=== PATIENT | female | born 1960 | race Caucasian/White ===

== ENCOUNTER 2016-11-17 18:25 | Emergency (ER) | payer OTHER ==
[2016-11-17] MEDS ORDERED: SODIUM CHLORIDE 0.9% 1,000 ML IV STA (19:39)
[2016-11-17] MEDS ORDERED: FAMOTIDINE 20 MG/2 ML VIAL IV STA (19:39)
--- NOTE | 2016-11-17 19:43 | ED ---
General Adult HPI - General Source: patient, RN notes reviewed Mode of arrival: wheelchair Limitations: no limitations <Dyllan Chung - Last Filed: 11/17/16 19:40> <Maverick Zarate - Last Filed: 11/17/16 22:48> - General Chief complaint: Abdominal Pain Stated complaint: Abdominal pain Time Seen by Provider: 11/17/16 19:32 - History of Present Illness Initial comments: Patient is a pleasant 56-year-old female presenting to the emergency department complaining of abdominal discomfort. Onset was around 2:00. Symptoms have improved and are now mild. Patient does have discomfort right side of the abdomen with radiation towards the back. Patient has had similar back pain multiple times in the past. Patient also at times feels like her food is not being swallowed appropriately and vomits it up. Patient having problems with swallowing feels discomfort more in the mid to lower abdomen. No fevers. No food prior to onset of symptoms today. (Dyllan Chung) - Related Data Previous Rx's Medication Instructions Recorded Dicyclomine [Bentyl] 20 mg PO QID #15 tablet 11/17/16 Famotidine [Pepcid] 20 mg PO DAILY #14 tablet 11/17/16 Allergies Allergy/AdvReac Type Severity Reaction Status Date / Time erythromycin base Allergy Nausea & Verified 11/17/16 19:43 [Erythromycin Base] Vomiting & Diarrhea Penicillins Allergy Rash/Hives Verified 11/17/16 19:43 Review of Systems ROS Other: All systems not noted in ROS Statement are negative. Constitutional: Denies: fever Eyes: Denies: eye pain ENT: Denies: ear pain Respiratory: Denies: cough Cardiovascular: Denies: chest pain Endocrine: Denies: fatigue Gastrointestinal: Reports: abdominal pain. Denies: vomiting Genitourinary: Denies: dysuria Musculoskeletal: Denies: arthralgia Skin: Denies: rash Neurological: Denies: weakness <Dyllan Chung - Last Filed: 11/17/16 19:40> ROS Other: All systems not noted in ROS Statement are negative. <Maverick Zarate - Last Filed: 11/17/16 22:48> ROS Statement: Those systems with pertinent positive or pertinent negative responses have been documented in the HPI. Past Medical History Past Medical History: No Reported History History of Any Multi-Drug Resistant Organisms: None Reported Past Surgical History: Hernia Repair, Tubal Ligation Past Psychological History: No Psychological Hx Reported Smoking Status: Never smoker Past Alcohol Use History: None Reported Past Drug Use History: None Reported <Dyllan Chung - Last Filed: 11/17/16 19:40> General Exam Limitations: no limitations General appearance: alert, in no apparent distress Head exam: Present: atraumatic Eye exam: Present: normal appearance, PERRL ENT exam: Present: normal oropharynx Neck exam: Present: normal inspection Respiratory exam: Present: normal lung sounds bilaterally Cardiovascular Exam: Present: regular rate, normal rhythm GI/Abdominal exam: Present: soft, tenderness (Mild tenderness in the epigastric and upper quadrant. Moderate tenderness in the mid and right lower quadrant.), normal bowel sounds. Absent: distended, guarding, rebound, rigid, pulsatile mass Extremities exam: Present: normal inspection. Absent: pedal edema, calf tenderness Back exam: Present: normal inspection. Absent: tenderness Neurological exam: Present: alert Psychiatric exam: Present: normal affect, normal mood Skin exam: Absent: rash <Dyllan Chung - Last Filed: 11/17/16 19:40> Medical Decision Making - Lab Data Result diagrams: 11/17/16 20:05 11/17/16 20:05 <Maverick Zarate - Last Filed: 11/17/16 22:48> - Lab Data Lab Results 11/17/16 11/17/16 11/17/16 Range/Units 20:05 20:05 20:05 WBC 11.0 H (3.8-10.6) k/uL RBC 4.46 (3.80-5.40) m/uL Hgb 14.3 (11.4-16.0) gm/dL Hct 40.5 (34.0-46.0) % MCV 90.8 (80.0-100.0) fL MCH 32.1 (25.0-35.0) pg MCHC 35.3 (31.0-37.0) g/dL RDW 12.2 (11.5-15.5) % Plt Count 349 (150-450) k/uL Neutrophils % 76 % Lymphocytes % 15 % Monocytes % 5 % Eosinophils % 2 % Basophils % 0 % Neutrophils # 8.4 H (1.3-7.7) k/uL Lymphocytes # 1.7 (1.0-4.8) k/uL Monocytes # 0.5 (0-1.0) k/uL Eosinophils # 0.2 (0-0.7) k/uL Basophils # 0.0 (0-0.2) k/uL PT 10.7 (9.0-12.0) sec INR 1.1 (<1.1) APTT 23.9 (22.0-30.0) sec Sodium 139 (137-145) mmol/L Potassium 4.1 (3.5-5.1) mmol/L Chloride 102 (98-107) mmol/L Carbon Dioxide 27 (22-30) mmol/L Anion Gap 10 mmol/L BUN 15 (7-17) mg/dL Creatinine 0.72 (0.52-1.04) mg/dL Est GFR (MDRD) Af Amer >60 (>60 ml/min/1.73 sqM) Est GFR (MDRD) Non-Af >60 (>60 ml/min/1.73 sqM) Glucose 103 H (74-99) mg/dL Calcium 9.5 (8.4-10.2) mg/dL Total Bilirubin 0.8 (0.2-1.3) mg/dL AST 20 (14-36) U/L ALT 22 (9-52) U/L Alkaline Phosphatase 58 (38-126) U/L Total Protein 7.8 (6.3-8.2) g/dL Albumin 4.3 (3.5-5.0) g/dL Amylase 62 (30-110) U/L Lipase 160 (23-300) U/L Urine Color Urine Appearance (Clear) Urine pH (5.0-8.0) Ur Specific [place] (1.001-1.035) Urine Protein (Negative) Urine Glucose (UA) (Negative) Urine Ketones (Negative) Urine Blood (Negative) Urine Nitrite (Negative) Urine Bilirubin (Negative) Urine Urobilinogen (<2.0) mg/dL Ur Leukocyte Esterase (Negative) Urine WBC (0-5) /hpf Ur Squamous Epith Cells (0-4) /hpf Amorphous Sediment (None) /hpf Urine Mucus (None) /hpf 11/17/16 Range/Units 20:05 WBC (3.8-10.6) k/uL RBC (3.80-5.40) m/uL Hgb (11.4-16.0) gm/dL Hct (34.0-46.0) % MCV (80.0-100.0) fL MCH (25.0-35.0) pg MCHC (31.0-37.0) g/dL RDW (11.5-15.5) % Plt Count (150-450) k/uL Neutrophils % % Lymphocytes % % Monocytes % % Eosinophils % % Basophils % % Neutrophils # (1.3-7.7) k/uL Lymphocytes # (1.0-4.8) k/uL Monocytes # (0-1.0) k/uL Eosinophils # (0-0.7) k/uL Basophils # (0-0.2) k/uL PT (9.0-12.0) sec INR (<1.1) APTT (22.0-30.0) sec Sodium (137-145) mmol/L Potassium (3.5-5.1) mmol/L Chloride (98-107) mmol/L Carbon Dioxide (22-30) mmol/L Anion Gap mmol/L BUN (7-17) mg/dL Creatinine (0.52-1.04) mg/dL Est GFR (MDRD) Af Amer (>60 ml/min/1.73 sqM) Est GFR (MDRD) Non-Af (>60 ml/min/1.73 sqM) Glucose (74-99) mg/dL Calcium (8.4-10.2) mg/dL Total Bilirubin (0.2-1.3) mg/dL AST (14-36) U/L ALT (9-52) U/L Alkaline Phosphatase (38-126) U/L Total Protein (6.3-8.2) g/dL Albumin (3.5-5.0) g/dL Amylase (30-110) U/L Lipase (23-300) U/L Urine Color Yellow Urine Appearance Cloudy H (Clear) Urine pH 7.5 (5.0-8.0) Ur Specific [place] 1.020 (1.001-1.035) Urine Protein Trace H (Negative) Urine Glucose (UA) Negative (Negative) Urine Ketones Negative (Negative) Urine Blood Negative (Negative) Urine Nitrite Negative (Negative) Urine Bilirubin Negative (Negative) Urine Urobilinogen <2.0 (<2.0) mg/dL Ur Leukocyte Esterase Negative (Negative) Urine WBC 1 (0-5) /hpf Ur Squamous Epith Cells 3 (0-4) /hpf Amorphous Sediment Few H (None) /hpf Urine Mucus Occasional H (None) /hpf Disposition <Dyllan Chnug - Last Filed: 11/17/16 19:40> <Maverick Zarate - Last Filed: 11/17/16 22:48> Clinical Impression: Abdominal pain Disposition: HOME SELF-CARE Condition: Good Instructions: Abdominal Pain (ED) Prescriptions: Dicyclomine [Bentyl] 20 mg PO QID #15 tablet Famotidine [Pepcid] 20 mg PO DAILY #14 tablet Referrals: John Bales MD [Primary Care Provider] - 1-2 days
[2016-11-17 20:17] LABS: Basophils % (A) 0 %; CH 31.7; Eosinophils # (A) 0.2 k/uL (0-0.7); Eosinophils % (A) 2 %; HCT 40.5 % (34.0-46.0); HDW 2.79; HGB 14.3 gm/dL (11.4-16.0); Luc # (Auto) 0.17; Luc % (Auto) 2; Lymphocytes # (A) 1.7 k/uL (1.0-4.8); Lymphocytes % (A) 15 %; MCH 32.1 pg (25.0-35.0); MCHC 35.3 g/dL (31.0-37.0); MCV 90.8 fL (80.0-100.0); Mean Platelet Volume 6.3; Monocytes # (A) 0.5 k/uL (0-1.0); Monocytes % (A) 5 %; Neutrophils # (A) 8.4 k/uL (1.3-7.7); Neutrophils % (A) 76 %; RBC 4.46 m/uL (3.80-5.40); RDW 12.2 % (11.5-15.5); WBC (Perox) 10.69
[2016-11-17 20:29] LABS: ALT 22 U/L (9-52); AST 20 U/L (14-36); Alkaline Phosphatase 58 U/L (38-126); Amylase 62 U/L (30-110); Anion Gap 10 mmol/L; Blood Urea Nitrogen 15 mg/dL (7-17); Calcium 9.5 mg/dL (8.4-10.2); Carbon Dioxide 27 mmol/L (22-30); Chloride 102 mmol/L (98-107); Glucose 103 mg/dL (74-99); Non-African American GFR(MDRD) >60 (>60 ml/min/1.73 sqM); Potassium 4.1 mmol/L (3.5-5.1); Sodium 139 mmol/L (137-145); Total Bilirubin 0.8 mg/dL (0.2-1.3); Total Protein 7.8 g/dL (6.3-8.2)
[2016-11-17 20:41] LABS: INR 1.1 (<1.1); Partial Thromboplastin Time 23.9 sec (22.0-30.0); Prothrombin Time 10.7 sec (9.0-12.0)
[2016-11-17 20:44] LABS: Amorphous Sediment,Urine Few /hpf; Appearance,Urine Cloudy (Clear); Bilirubin,Urine Negative (Negative); Glucose,Urine (UA) Negative (Negative); Ketones,Urine Negative (Negative); Leukocyte Esterase,Urine Negative (Negative); Mucus,Urine Occasional /hpf; Nitrite,Urine Negative (Negative); PH, Urine 7.5 (5.0-8.0); Particle Count 5977; Protein,Urine Trace (Negative); Squamous Epithelial Cell,Urine 3 /hpf (0-4); UA Billing (MACRO vs. MICRO) MICRO; Urobilinogen,Urine <2.0 mg/dL (<2.0); WBC,Urine 1 /hpf (0-5)
[2016-11-17 21:29] VITALS: TEMP 97.6
--- NOTE | 2016-11-17 21:36 | CT ---
EXAMINATION TYPE: CT ABDOMEN PELVIS WO CON DATE OF EXAM: 11/17/2016 8:22 PM COMPARISON: NONE HISTORY: abdominal pain CT DLP: 570.7 mGycm. Automated exposure control for dose reduction was used. TECHNIQUE: Helical acquisition of images was performed from the lung bases through the pelvis. FINDINGS: LUNG BASES: No significant abnormality is appreciated. LIVER/GB: No significant abnormality is appreciated. PANCREAS: No significant abnormality is seen. SPLEEN: No significant abnormality is seen. ADRENALS: No significant abnormality is seen. KIDNEYS: No significant abnormality is seen. RETROPERITONEAL ADENOPATHY: None visualized REPRODUCTIVE ORGANS: No significant abnormality is seen, URINARY BLADDER: No significant abnormality is seen. PELVIC ADENOPATHY: None visualized. OSSEOUS STRUCTURES: No significant abnormality is seen. BOWEL: No significant abnormality is seen. Limitation: Without intravenous contrast there is limited sensitivity for focal visceral lesions and for intravascular pathology. IMPRESSION: NO ACUTE PROCESS.
[2016-11-17 23:08] VITALS: BP 146/74; PULSE 75; RESP 16
== END 2016-11-17 23:08 | disposition home or self-care (01) ==
LOC: EC 18:25
DX: R10.13 Epigastric pain (principal); R10.10 Upper abdominal pain, unspecified; R10.31 Right lower quadrant pain; Z88.0 Allergy status to penicillin; Z88.1 Allergy status to other antibiotic agents
CPT/HCPCS: 36415; 74176; 80053; 81001; 82150; 83690; 85025; 85610; 85730; 86677; 96361; 96374; 99284

== ENCOUNTER 2019-03-08 10:52 | Emergency (ER) | payer OTHER ==
[2019-03-08 10:57] VITALS: RESP 16; TEMP 98.1
[2019-03-08] MEDS ORDERED: SODIUM CHLORIDE 0.9% 500 ML 500 ML IV STA (11:38)
[2019-03-08] MEDS ORDERED: KETOROLAC 30 MG/ML 1 ML VIAL IVP STA (11:38)
--- NOTE | 2019-03-08 12:07 | ED ---
Headache HPI - General Chief Complaint: Headache Stated Complaint: Back and neck pain Time Seen by Provider: 03/08/19 11:02 Mode of arrival: ambulatory Limitations: no limitations - History of Present Illness Initial Comments: Patient is a 58-year-old female presenting to the emergency Department with complaints of a headache at times one day. Patient states yesterday she was watching TV and started having "zigzag patterns in her vision" that lasted for about 10 minutes and then went away. Patient states she then went to bed and woke up with a headache and a sore neck. Patient describes her headache as in the posterior aspect, 4/10, and describes it as pressure feeling. Patient states she has no increase or decrease in pain with neck movement. Patient denies any recent fever, chills or other recent illnesses. Patient states she has no changes in her vision today. Patient was diagnosed with fibromyalgia a few years ago but does not take any medications. Patient denies nausea, vomiting, abdominal pain. No other complaints at this time. Of note, patient does admit to being on a bus last week that could be contributing to her sore neck. - Related Data Home Medications Medication Instructions Recorded Confirmed Aspirin EC [Ecotrin Low Dose] 324 mg PO DAILY PRN 03/08/19 03/08/19 Lysine 500 mg PO DAILY 03/08/19 03/08/19 Multivitamins, Thera [Multivitamin 1 tab PO DAILY 03/08/19 03/08/19 (formulary)] Turmeric Root Extract [Turmeric] 500 mg PO DAILY 03/08/19 03/08/19 Allergies Allergy/AdvReac Type Severity Reaction Status Date / Time erythromycin base Allergy Nausea & Verified 03/08/19 11:15 [Erythromycin Base] Vomiting & Diarrhea Penicillins Allergy Rash/Hives Verified 03/08/19 11:15 Review of Systems ROS Statement: Those systems with pertinent positive or pertinent negative responses have been documented in the HPI. ROS Other: All systems not noted in ROS Statement are negative. Past Medical History Past Medical History: No Reported History History of Any Multi-Drug Resistant Organisms: None Reported Past Surgical History: Hernia Repair, Tubal Ligation Past Psychological History: No Psychological Hx Reported Smoking Status: Never smoker Past Alcohol Use History: None Reported Past Drug Use History: None Reported General Exam - General Exam Comments Initial Comments: GENERAL: Well-appearing, well-nourished and in no acute distress. HEAD: Atraumatic, normocephalic. EYES: Pupils equal round and reactive to light, extraocular movements intact, sclera anicteric, conjunctiva are normal. ENT: TMs normal, nares patent, oropharynx clear without exudates. Moist mucous membranes. NECK: Normal range of motion with soreness at the end range, supple without lymphadenopathy or JVD. No pain with palpation of the posterior paraspinals. LUNGS: Breath sounds clear to auscultation bilaterally and equal. No wheezes rales or rhonchi. HEART: Regular rate and rhythm without murmurs, rubs or gallops. ABDOMEN: Soft, nontender, normoactive bowel sounds. No guarding, no rebound. No masses appreciated. : Deferred EXTREMITIES: Normal range of motion, no pitting or edema. No clubbing or cyanosis. NEUROLOGICAL: Cranial nerves II through XII grossly intact. Normal speech, normal gait. sensation equal in bilateral upper and lower extremities. Strength 5 out of 5 upper and lower extremities. PSYCH: Normal mood, normal affect. SKIN: Warm, Dry, normal turgor, no rashes or lesions noted. Limitations: no limitations Course Vital Signs 03/08/19 03/08/19 10:55 13:24 Temperature 98.1 F 98.1 F Pulse Rate 76 70 Respiratory 16 16 Rate Blood Pressure 167/68 145/61 O2 Sat by Pulse 97 98 Oximetry Medical Decision Making - Medical Decision Making Patient is a 58-year-old female presenting with a headache 1 day. Patient has history of fibromyalgia but does not take any medication for this. Patient's exam is unremarkable including neuro exam. Patient has no meningeal signs. Patient states she was on a bus last week that could be contributing to her sore neck. Patient was given fluids and Toradol which did relieve her headache. Patient's vital signs remained stable during stay, afebrile. Patient's CBC CMP and UA are all within normal limits. Patient be discharged home and will follow up with PCP and/or neurologist if symptoms continue and patient was in agreement with this plan. Return parameters were discussed with the patient she nigel balized understanding such as fever, chills, increased pain in the neck or head. Case discussed with Dr. Waite. - Lab Data Result diagrams: 03/08/19 11:45 03/08/19 11:45 Lab Results 03/08/19 03/08/19 03/08/19 Range/Units 11:45 11:45 11:45 WBC 7.6 (3.8-10.6) k/uL RBC 4.83 (3.80-5.40) m/uL Hgb 14.9 (11.4-16.0) gm/dL Hct 44.4 (34.0-46.0) % MCV 92.0 (80.0-100.0) fL MCH 30.9 (25.0-35.0) pg MCHC 33.6 (31.0-37.0) g/dL RDW 13.1 (11.5-15.5) % Plt Count 318 (150-450) k/uL Neutrophils % 58 % Lymphocytes % 28 % Monocytes % 6 % Eosinophils % 6 % Basophils % 1 % Neutrophils # 4.4 (1.3-7.7) k/uL Lymphocytes # 2.1 (1.0-4.8) k/uL Monocytes # 0.4 (0-1.0) k/uL Eosinophils # 0.5 (0-0.7) k/uL Basophils # 0.1 (0-0.2) k/uL Sodium 138 (137-145) mmol/L Potassium 4.7 (3.5-5.1) mmol/L Chloride 104 (98-107) mmol/L Carbon Dioxide 28 (22-30) mmol/L Anion Gap 6 mmol/L BUN 15 (7-17) mg/dL Creatinine 0.73 (0.52-1.04) mg/dL Est GFR (CKD-EPI)AfAm >90 (>60 ml/min/1.73 sqM) Est GFR (CKD-EPI)NonAf >90 (>60 ml/min/1.73 sqM) Glucose 100 H (74-99) mg/dL Calcium 9.7 (8.4-10.2) mg/dL Total Bilirubin 1.3 (0.2-1.3) mg/dL AST 25 (14-36) U/L ALT 17 (9-52) U/L Alkaline Phosphatase 62 (38-126) U/L Total Protein 8.1 (6.3-8.2) g/dL Albumin 4.5 (3.5-5.0) g/dL Urine Color Yellow Urine Appearance Clear (Clear) Urine pH 6.0 (5.0-8.0) Ur Specific [place] 1.020 (1.001-1.035) Urine Protein Trace H (Negative) Urine Glucose (UA) Negative (Negative) Urine Ketones Negative (Negative) Urine Blood Trace H (Negative) Urine Nitrite Negative (Negative) Urine Bilirubin Negative (Negative) Urine Urobilinogen <2.0 (<2.0) mg/dL Ur Leukocyte Esterase Small H (Negative) Urine RBC 4 (0-5) /hpf Urine WBC 2 (0-5) /hpf Ur Squamous Epith Cells 1 (0-4) /hpf Urine Mucus Rare H (None) /hpf Disposition Clinical Impression: Headache Disposition: HOME SELF-CARE Condition: Stable Instructions (If sedation given, give patient instructions): Acute Headache (ED) Additional Instructions: Please return to the Emergency Department if symptoms worsen or any other concerns. Is patient prescribed a controlled substance at d/c from ED?: No Referrals: John Bales MD [Primary Care Provider] - 1-2 days
[2019-03-08 12:10] LABS: ALT 17 U/L (9-52); AST 25 U/L (14-36); African American GFR (CKD) >90 (>60 ml/min/1.73 sqM); Albumin 4.5 g/dL (3.5-5.0); Alkaline Phosphatase 62 U/L (38-126); Anion Gap 6 mmol/L; Basophils # (A) 0.1 k/uL (0-0.2); Basophils % (A) 1 %; Blood Urea Nitrogen 15 mg/dL (7-17); Calcium 9.7 mg/dL (8.4-10.2); Carbon Dioxide 28 mmol/L (22-30); Chloride 104 mmol/L (98-107); Eosinophils # (A) 0.5 k/uL (0-0.7); Eosinophils % (A) 6 %; Glucose 100 mg/dL (74-99); HCT 44.4 % (34.0-46.0); HGB 14.9 gm/dL (11.4-16.0); Lymphocytes # (A) 2.1 k/uL (1.0-4.8); Lymphocytes % (A) 28 %; MCH 30.9 pg (25.0-35.0); MCHC 33.6 g/dL (31.0-37.0); Mean Platelet Volume 6.5; Monocytes # (A) 0.4 k/uL (0-1.0); Monocytes % (A) 6 %; Neutrophils # (A) 4.4 k/uL (1.3-7.7); Neutrophils % (A) 58 %; Non-African American GFR(CKD) >90 (>60 ml/min/1.73 sqM); Platelet Count 318 k/uL (150-450); Potassium 4.7 mmol/L (3.5-5.1); RBC 4.83 m/uL (3.80-5.40); RDW 13.1 % (11.5-15.5); Sodium 138 mmol/L (137-145); Total Bilirubin 1.3 mg/dL (0.2-1.3); Total Protein 8.1 g/dL (6.3-8.2); WBC 7.6 k/uL (3.8-10.6)
[2019-03-08 12:13] LABS: Appearance,Urine Clear (Clear); Bilirubin,Urine Negative (Negative); Blood,Urine Trace (Negative); Color,Urine Yellow; Glucose,Urine (UA) Negative (Negative); Ketones,Urine Negative (Negative); Leukocyte Esterase,Urine Small (Negative); Mucus,Urine Rare /hpf; Nitrite,Urine Negative (Negative); Protein,Urine Trace (Negative); RBC,Urine 4 /hpf (0-5); Squamous Epithelial Cell,Urine 1 /hpf (0-4); Urobilinogen,Urine <2.0 mg/dL (<2.0); WBC,Urine 2 /hpf (0-5)
[2019-03-08 13:25] VITALS: BP 145/61; PULSE 70
== END 2019-03-08 13:25 | disposition home or self-care (01) ==
LOC: EC 10:52
DX: R51 Headache (principal); M54.9 Dorsalgia, unspecified; M54.2 Cervicalgia; Z79.899 Other long term (current) drug therapy; Z88.0 Allergy status to penicillin; Z88.1 Allergy status to other antibiotic agents
CPT/HCPCS: 36415; 80053; 85025; 81001; 99284; 96374; 96361; J1885

== ENCOUNTER → 2020-10-23 | Outpatient (CLI) | payer OTHER ==
--- NOTE | 2020-10-23 12:52 | CONS ---
CONSULTATION DATE OF SERVICE: 10/23/2020 This 60-year-old lady has been evaluated in the sleep center for possible obstructive sleep apnea-hypopnea syndrome. HISTORY OF PRESENT ILLNESS/SLEEP-WAKE EVALUATION: Patient usual sleep schedule from midnight or 1 a.m. until 9 a.m. She may wake up around 5:30 and then she will go back to bed at 6. Usually no problems with falling asleep. No TV in bedroom. She usually sleeps on the side position. According to her , she has loud snoring and witnessed episodes of stopped breathing during the sleep. She wakes up from sleep up to 3 times usually no nocturia. In the morning patient wakes up tired and feels tiredness during the day. She denies significant sleepiness. [place] Sleepiness Scale is 3, but again she feels tired. PAST MEDICAL HISTORY: Positive for fibromyalgia, nasal septum deviation, questionable heart attack because according to patient, her cardiac enzymes have been increased, but the following evaluation after that was basically negative for coronary artery disease which include cardiac catheterization. PAST SURGICAL HISTORY: Hernia repair, tubal ligation. MEDICATIONS: No medications at the present time. SOCIAL HISTORY: Negative for smoking or using alcohol. FAMILY HISTORY: Positive for cancer. REVIEW OF SYSTEMS: Multiple awakenings from sleep, feeling tiredness during the day. PHYSICAL EXAMINATION: GENERAL: lady without distress. VITAL SIGNS: BP 146/85, HR 88, RR 12, height 5 feet 9 inches, weight 197.2, temperature 98.7, oxygen saturation at room air 97%, body mass index 29.0. HEENT: PERRLA, EOMI. Oropharynx moderately low position of soft palate, Mallampati 2-3. NECK: Neck is 15 inches in circumference. LUNGS: Clear to percussion and to auscultation. Good air exchange. No wheezing or rhonchi. HEART: S1, S2 regular. No murmurs, gallops, or rubs. ABDOMEN: Slightly obese. EXTREMITIES: No clubbing or cyanosis. YARD PERSON: Awake, alert, and oriented X3. Cranial nerves 2 to 7 intact. There is no fasciculation or atrophy. noted. No focal deficits observed. IMPRESSION: 1. Loud snoring, witnessed episodes of stopped breathing during sleep, multiple awakenings from sleep, possible obstructive sleep apnea-hypopnea syndrome. 2. Overweight, body mass index 29.0. 3. History of questionable heart attack by results of increased cardiac enzymes. 4. Menopause. 5. History of fibromyalgia. 6. Nasal septum deviation. 7. Status post hernia repair in 2011. 8. Status post tubal ligation in 2002. PLAN: 1. Polysomnography for evaluation of patient's breathing during sleep. 2. CPAP/BiPAP titration if sleep study confirms obstructive sleep apnea-hypopnea syndrome. 3. Preferable position during sleep on the side. 4. No driving if patient feels any sleepiness. 5. I will see patient for follow up visit to explain results of testing and following plan. Thank you very much for referring this patient for consultation. Sincerely, Taiwo Cross MD, PhD, FAASM Diplomat of [employer] [place] [employer] [place] [employer] of [facility] [place] MMNIKITAL / ABHAY: [id number] /
== END ==
LOC: SLEEP 10:57
PROVIDERS: ATTEND Internal Medicine
DX: R06.83 Snoring (principal); E66.3 Overweight; J34.2 Deviated nasal septum; Z78.0 Asymptomatic menopausal state; Z98.51 Tubal ligation status; Z87.39 Personal history of other diseases of the musculoskeletal system and connective tissue; Z98.890 Other specified postprocedural states
CPT/HCPCS: 99211

== ENCOUNTER 2021-04-10 14:02 | Observation (INO) | payer OTHER ==
[2021-04-10] MEDS ORDERED: MORPHINE SULFATE 2 MG/ML SYRINGE IVP STA (16:59)
[2021-04-10] MEDS ORDERED: SODIUM CHLORIDE 0.9% 1,000 ML IV STA (16:59)
--- NOTE | 2021-04-10 17:04 | ED ---
General Adult HPI - General Chief complaint: Back Pain/Injury Stated complaint: Shoulder Pain Time Seen by Provider: 04/10/21 16:52 Source: patient, RN notes reviewed, old records reviewed Mode of arrival: ambulatory Limitations: no limitations - History of Present Illness Initial comments: 60-year-old white female, well appearing, presents to the emergency room for 8 days of back pain between her shoulder blades. Patient states that the pain came on when she was at rest. She has not seen anyone for this pain. She also is complaining of left flank pain that radiates around to her left groin and epigastric pain. She states that she had a colonoscopy and an endoscopy done 2 years ago for abdominal pain and was told that she has a small stricture in her esophagus, she also had a polyp removed from her stomach. She does have a history of abdominal surgery hernia repair with mesh. She states that she did have a heart attack 18 years ago. She denies any chest pain or shortness of breath. She denies any fevers or nausea vomiting. She has seen her doctor in the past and the cause of her left lower abdominal pain has not been determined. -: days(s) (8) Location: back Severity scale (1-10): 9 Quality: aching Consistency: constant Improves with: none Worsens with: none Associated Symptoms: other (Epigastric abdominal pain, left flank pain, difficulty swallowing at times) - Related Data Home Medications Medication Instructions Recorded Confirmed Multivitamins, Thera [Multivitamin 1 tab PO DAILY 03/08/19 04/10/21 (formulary)] Allergies Allergy/AdvReac Type Severity Reaction Status Date / Time erythromycin base Allergy Nausea & Verified 04/10/21 19:52 [Erythromycin Base] Vomiting & Diarrhea Penicillins Allergy Rash/Hives Verified 04/10/21 19:52 Review of Systems ROS Statement: Those systems with pertinent positive or pertinent negative responses have been documented in the HPI. ROS Other: All systems not noted in ROS Statement are negative. Past Medical History Past Medical History: No Reported History History of Any Multi-Drug Resistant Organisms: None Reported Past Surgical History: Hernia Repair, Tubal Ligation Past Psychological History: No Psychological Hx Reported Smoking Status: Never smoker Past Alcohol Use History: None Reported Past Drug Use History: None Reported General Exam Limitations: no limitations General appearance: alert, in no apparent distress Head exam: Present: atraumatic, normocephalic, normal inspection Eye exam: Present: normal appearance, PERRL, EOMI. Absent: scleral icterus, conjunctival injection, periorbital swelling ENT exam: Present: normal exam, normal oropharynx, mucous membranes moist Neck exam: Present: normal inspection, full ROM. Absent: tenderness, meningi smus, lymphadenopathy, thyromegaly Respiratory exam: Present: normal lung sounds bilaterally. Absent: respiratory distress, wheezes, rales, rhonchi, stridor, chest wall tenderness, accessory muscle use, decreased breath sounds Cardiovascular Exam: Present: regular rate, normal rhythm, normal heart sounds. Absent: systolic murmur, diastolic murmur, rubs, gallop, clicks GI/Abdominal exam: Present: soft, tenderness (Left lower quadrant) Extremities exam: Present: normal inspection, full ROM, normal capillary refill. Absent: tenderness, pedal edema, joint swelling, calf tenderness Back exam: Present: normal inspection, full ROM, CVA tenderness (L). Absent: tenderness, CVA tenderness (R), muscle spasm, paraspinal tenderness, vertebral tenderness, rash noted Neurological exam: Present: alert, oriented X3, CN II-XII intact Psychiatric exam: Present: normal affect, normal mood Skin exam: Present: warm, dry, intact, normal color. Absent: rash, cyanosis, diaphoretic, erythema, petechiae, pallor, mottled Course Vital Signs 04/10/21 04/10/21 04/10/21 15:40 17:25 17:27 Temperature 98.4 F Pulse Rate 80 77 Respiratory 18 18 Rate Blood Pressure 139/79 124/81 O2 Sat by Pulse 100 94 L 98 Oximetry 04/10/21 04/10/21 04/10/21 17:30 18:00 18:30 Temperature Pulse Rate 85 Respiratory Rate Blood Pressure 124/81 122/73 128/75 O2 Sat by Pulse 97 98 Oximetry 04/10/21 19:00 Temperature Pulse Rate 80 Respiratory 18 Rate Blood Pressure 127/77 O2 Sat by Pulse 99 Oximetry EKG Findings - EKG Results: EKG: sinus rhythm (Ventricular rate of 64, CO interval 0.120, QRS of 0.132, QTC 0.445; a bifascicular block. There is no old EKG to compare) Medical Decision Making - Medical Decision Making CBC and electrolytes are within normal limits. UA is negative for infection. Troponin is negative at 0.012 EKG shows sinus rhythm with a bifascicular block. There is no old EKG to compare. CT the abdomen and pelvis shows no acute process. Her appendix is normal. There is no abnormality of the gallbladder, liver or pancreas. Patient did have an acute UT 18 years ago. She states that she did have an echo and they found no cause. I did speak with Dr. Howell she will be admitted with a cardiology consult. Patient is pain-free at this time but is agreeable to staying in the hospital. - Lab Data Result diagrams: 04/10/21 17:20 04/10/21 17:20 Lab Results 04/10/21 04/10/21 04/10/21 Range/Units 17:20 17:20 17:20 WBC 8.3 (3.8-10.6) k/uL RBC 4.81 (3.80-5.40) m/uL Hgb 15.6 (11.4-16.0) gm/dL Hct 44.5 (34.0-46.0) % MCV 92.5 (80.0-100.0) fL MCH 32.3 (25.0-35.0) pg MCHC 34.9 (31.0-37.0) g/dL RDW 12.6 (11.5-15.5) % Plt Count 343 (150-450) k/uL MPV 6.3 Neutrophils % 57 % Lymphocytes % 31 % Monocytes % 5 % Eosinophils % 4 % Basophils % 1 % Neutrophils # 4.8 (1.3-7.7) k/uL Lymphocytes # 2.6 (1.0-4.8) k/uL Monocytes # 0.4 (0-1.0) k/uL Eosinophils # 0.3 (0-0.7) k/uL Basophils # 0.1 (0-0.2) k/uL PT 10.5 (9.0-12.0) sec INR 1.0 (<1.2) APTT 23.7 (22.0-30.0) sec Sodium (137-145) mmol/L Potassium (3.5-5.1) mmol/L Chloride (98-107) mmol/L Carbon Dioxide (22-30) mmol/L Anion Gap mmol/L BUN (7-17) mg/dL Creatinine (0.52-1.04) mg/dL Est GFR (CKD-EPI)AfAm (>60 ml/min/1.73 sqM) Est GFR (CKD-EPI)NonAf (>60 ml/min/1.73 sqM) Glucose (74-99) mg/dL Plasma Lactic Acid Russ (0.7-2.0) mmol/L Calcium (8.4-10.2) mg/dL Total Bilirubin (0.2-1.3) mg/dL AST (14-36) U/L ALT (4-34) U/L Alkaline Phosphatase (38-126) U/L Troponin I (0.000-0.034) ng/mL Total Protein (6.3-8.2) g/dL Albumin (3.5-5.0) g/dL Amylase (30-110) U/L Lipase (23-300) U/L Urine Color Yellow Urine Appearance Clear (Clear) Urine pH 5.0 (5.0-8.0) Ur Specific [place] 1.022 (1.001-1.035) Urine Protein Negative (Negative) Urine Glucose (UA) Negative (Negative) Urine Ketones Negative (Negative) Urine Blood Trace H (Negative) Urine Nitrite Negative (Negative) Urine Bilirubin Negative (Negative) Urine Urobilinogen <2.0 (<2.0) mg/dL Ur Leukocyte Esterase Negative (Negative) Urine RBC <1 (0-5) /hpf Urine WBC <1 (0-5) /hpf Ur Squamous Epith Cells 1 (0-4) /hpf Hyaline Casts 1 (0-2) /lpf Urine Mucus Moderate H (None) /hpf 04/10/21 04/10/21 04/10/21 Range/Units 17:20 17:20 17:20 WBC (3.8-10.6) k/uL RBC (3.80-5.40) m/uL Hgb (11.4-16.0) gm/dL Hct (34.0-46.0) % MCV (80.0-100.0) fL MCH (25.0-35.0) pg MCHC (31.0-37.0) g/dL RDW (11.5-15.5) % Plt Count (150-450) k/uL MPV Neutrophils % % Lymphocytes % % Monocytes % % Eosinophils % % Basophils % % Neutrophils # (1.3-7.7) k/uL Lymphocytes # (1.0-4.8) k/uL Monocytes # (0-1.0) k/uL Eosinophils # (0-0.7) k/uL Basophils # (0-0.2) k/uL PT (9.0-12.0) sec INR (<1.2) APTT (22.0-30.0) sec Sodium 140 (137-145) mmol/L Potassium 4.6 (3.5-5.1) mmol/L Chloride 105 (98-107) mmol/L Carbon Dioxide 25 (22-30) mmol/L Anion Gap 10 mmol/L BUN 16 (7-17) mg/dL Creatinine 0.76 (0.52-1.04) mg/dL Est GFR (CKD-EPI)AfAm >90 (>60 ml/min/1.73 sqM) Est GFR (CKD-EPI)NonAf 87 (>60 ml/min/1.73 sqM) Glucose 98 (74-99) mg/dL Plasma Lactic Acid Russ 1.4 (0.7-2.0) mmol/L Calcium 10.2 (8.4-10.2) mg/dL Total Bilirubin 0.8 (0.2-1.3) mg/dL AST 31 (14-36) U/L ALT 19 (4-34) U/L Alkaline Phosphatase 75 (38-126) U/L Troponin I <0.012 (0.000-0.034) ng/mL Total Protein 8.1 (6.3-8.2) g/dL Albumin 4.7 (3.5-5.0) g/dL Amylase 64 (30-110) U/L Lipase 133 (23-300) U/L Urine Color Urine Appearance (Clear) Urine pH (5.0-8.0) Ur Specific [place] (1.001-1.035) Urine Protein (Negative) Urine Glucose (UA) (Negative) Urine Ketones (Negative) Urine Blood (Negative) Urine Nitrite (Negative) Urine Bilirubin (Negative) Urine Urobilinogen (<2.0) mg/dL Ur Leukocyte Esterase (Negative) Urine RBC (0-5) /hpf Urine WBC (0-5) /hpf Ur Squamous Epith Cells (0-4) /hpf Hyaline Casts (0-2) /lpf Urine Mucus (None) /hpf Disposition Clinical Impression: ACS (acute coronary syndrome) Disposition: ADMITTED IP TO THIS HOSP Decision Date: 04/10/21 Decision Time: 19:40
[2021-04-10 17:39] LABS: Basophils # (A) 0.1 k/uL (0-0.2); Basophils % (A) 1 %; Eosinophils # (A) 0.3 k/uL (0-0.7); Eosinophils % (A) 4 %; HCT 44.5 % (34.0-46.0); HGB 15.6 gm/dL (11.4-16.0); Lymphocytes # (A) 2.6 k/uL (1.0-4.8); Lymphocytes % (A) 31 %; MCH 32.3 pg (25.0-35.0); MCHC 34.9 g/dL (31.0-37.0); MCV 92.5 fL (80.0-100.0); Mean Platelet Volume 6.3; Monocytes # (A) 0.4 k/uL (0-1.0); Monocytes % (A) 5 %; Neutrophils # (A) 4.8 k/uL (1.3-7.7); Neutrophils % (A) 57 %; Platelet Count 343 k/uL (150-450); RBC 4.81 m/uL (3.80-5.40); RDW 12.6 % (11.5-15.5); WBC 8.3 k/uL (3.8-10.6)
[2021-04-10 17:49] LABS: ALT 19 U/L (4-34); AST 31 U/L (14-36); African American GFR (CKD) >90 (>60 ml/min/1.73 sqM); Albumin 4.7 g/dL (3.5-5.0); Alkaline Phosphatase 75 U/L (38-126); Amylase 64 U/L (30-110); Anion Gap 10 mmol/L; Blood Urea Nitrogen 16 mg/dL (7-17); Calcium 10.2 mg/dL (8.4-10.2); Carbon Dioxide 25 mmol/L (22-30); Chloride 105 mmol/L (98-107); Glucose 98 mg/dL (74-99); Lipase 133 U/L (23-300); Non-African American GFR(CKD) 87 (>60 ml/min/1.73 sqM); Potassium 4.6 mmol/L (3.5-5.1); Sodium 140 mmol/L (137-145); Total Bilirubin 0.8 mg/dL (0.2-1.3); Total Protein 8.1 g/dL (6.3-8.2)
[2021-04-10 17:50] LABS: Partial Thromboplastin Time 23.7 sec (22.0-30.0); Prothrombin Time 10.5 sec (9.0-12.0)
[2021-04-10 17:51] LABS: Appearance,Urine Clear (Clear); Bilirubin,Urine Negative (Negative); Blood,Urine Trace (Negative); Color,Urine Yellow; Glucose,Urine (UA) Negative (Negative); Hyaline Casts,Urine 1 /lpf (0-2); Ketones,Urine Negative (Negative); Leukocyte Esterase,Urine Negative (Negative); Mucus,Urine Moderate /hpf; Nitrite,Urine Negative (Negative); Protein,Urine Negative (Negative); RBC,Urine <1 /hpf (0-5); Specific Gravity,Urine 1.022 (1.001-1.035); Squamous Epithelial Cell,Urine 1 /hpf (0-4); Urobilinogen,Urine <2.0 mg/dL (<2.0); WBC,Urine <1 /hpf (0-5)
--- NOTE | 2021-04-10 18:33 | CT ---
EXAMINATION TYPE: CT abdomen pelvis wo con DATE OF EXAM: 04/10/2021 COMPARISON: 11/17/2016 HISTORY: Generalized abdominal pain. CT DLP: 734.1 mGycm Automated exposure control for dose reduction was used. TECHNIQUE: Helical acquisition of images was performed from the lung bases through the pelvis. FINDINGS: LUNG BASES: No significant abnormality is appreciated. LIVER/GB: No significant abnormality is appreciated. PANCREAS: No significant abnormality is seen. SPLEEN: No significant abnormality is seen. ADRENALS: No significant abnormality is seen. KIDNEYS: No significant abnormality is seen. FREE AIR: No free air is visualized RETROPERITONEAL ADENOPATHY: None visualized REPRODUCTIVE ORGANS: No significant abnormality is seen URINARY BLADDER: No significant abnormality is seen. PELVIC ADENOPATHY: None visualized. OSSEOUS STRUCTURES: No significant abnormality is seen. BOWEL: No significant abnormality is seen. Appendix is normal. IMPRESSION: NO ACUTE CT PROCESS.
[2021-04-10] MEDS ORDERED: NALOXONE 0.4 MG/ML 1 ML VIAL IV PRN (19:35)
[2021-04-10] MEDS ORDERED: ACETAMINOPHEN TAB 325 MG TAB PO PRN (19:35)
[2021-04-10] MEDS ORDERED: NITROGLYCERIN SL TABS 0.4 MG TAB SUBLINGUAL PRN (20:03)
[2021-04-10] MEDS: SODIUM CHLORIDE 0.9% 1,000 ML IV SCH (20:04)
[2021-04-10 23:08] VITALS: RESP 16
[2021-04-11] MEDS ORDERED: ASPIRIN 325 MG TAB PO SCH (09:00)
[2021-04-11 09:31] VITALS: PULSE 71
[2021-04-11] MEDS: SODIUM CHLORIDE 0.9% 1,000 ML IV SCH (10:38)
--- NOTE | 2021-04-11 10:51 | P.CRDCN ---
History of Present Illness Consult date: 04/11/21 History of present illness: HISTORY OF PRESENT ILLNESS: This is a 60-year-old female with no significant past medical history. Patient does not follow with a support worker. We have been asked to see the patient in consultation for chest pain. Patient examined at the bedside. Patient reports she has been having pain for the past 8 days between her shoulder blades, epigastric region, and right upper quadrant pain. She currently denies chest pa in or pressure. She reports some associated nausea. She reports a history of hernia repair with mesh and states she has been having some issues secondary to that. She reports she has had this time of pain on and off for the past 30 years and believes it may be related to her gallbladder. EKG reveals sinus mechanism. left axis deviation. right bundle branch block. No signs of acute ischemia. Laboratory data: WBC 8.3. Hemoglobin 15.6. Platelet count 343. Sodium 140. Potassium 4.6. BUN 16. Creatinine 0.76. Lactic acid 1.4. Troponin negative 3. Current home cardiac medications include none REVIEW OF SYSTEMS: At the time of my exam: CONSTITUTIONAL: Denies fever or chills. HEENT: Denies blurred vision, vision changes, or eye pain. Denies hemoptysis CARDIOVASCULAR: Denies chest pain. Denies orthopnea. Denies PND. Denies palpitations RESPIRATORY: Denies shortness of breath. GASTROINTESTINAL: Denies abdominal pain. Denies nausea or vomiting. HEMATOLOGIC: Denies bleeding disorders. GENITOURINARY: Denies any blood in urine. SKIN: Denies pruitis. Denies rash. PHYSICAL EXAM: VITAL SIGNS: Reviewed. GENERAL: Well-developed in no acute distress. HEENT: Head is normocephalic. Pupils are equal, round. Sclerae anicteric. Mucous membranes of the mouth are moist. Neck supple. No JVD or thyromegaly LUNGS: Respirations even and unlabored. Lungs essentially clear to auscultation bilaterally. HEART: Regular rate and rhythm. S1 and S2 heard. ABDOMEN: Soft. Nondistended. Nontender. EXTREMITIES: Normal range of motion. No clubbing or cyanosis. Peripheral pulses intact. No lower extremity edema NEUROLOGIC: Awake and alert. Oriented x 3. ASSESSMENT: Chest pain, atypical, troponin negative x 3 PLAN: An acute coronary event has been ruled out Obtain 2D echo to assess cardiac structure and function Recommend GI/General surgery consult Further recommendations pending patient course Nurse practitioner note has been reviewed by physician. Signing provider agrees with the documented findings, assessment, and plan of care. Past Medical History Past Medical History: Myocardial Infarction (AR) Additional Past Medical History / Comment(s): Pt had AR 19 years ago. Last Myocardial Infarction Date:: 2002 History of Any Multi-Drug Resistant Organisms: None Reported Past Surgical History: Heart Catheterization, Hernia Repair, Tubal Ligation Past Anesthesia/Blood Transfusion Reactions: No Reported Reaction Past Psychological History: No Psychological Hx Reported Smoking Status: Never smoker Past Alcohol Use History: None Reported Past Drug Use History: None Reported - Past Family History Mother Family Medical History: Cancer Additional Family Medical History / Comment(s): of colon cancer Father Family Medical History: Cancer Additional Family Medical History / Comment(s): Renal cancer Medications and Allergies Home Medications Medication Instructions Recorded Confirmed Type Multivitamins, Thera [Multivitamin 1 tab PO DAILY 03/08/19 04/10/21 History (formulary)] Allergies Allergy/AdvReac Type Severity Reaction Status Date / Time erythromycin base Allergy Nausea & Verified 04/10/21 19:52 [Erythromycin Base] Vomiting & Diarrhea Penicillins Allergy Rash/Hives Verified 04/10/21 19:52 Physical Exam Vitals: Vital Signs Temp Pulse Pulse Resp BP BP Pulse Ox 04/11/21 02:00 76 16 04/11/21 01:30 97.6 F 76 16 100/65 95 04/10/21 21:54 98.1 F 68 16 136/71 98 04/10/21 19:00 80 18 127/77 99 04/10/21 18:30 128/75 98 04/10/21 18:00 85 122/73 04/10/21 17:30 124/81 97 04/10/21 17:27 77 18 124/81 98 04/10/21 17:25 94 L 04/10/21 15:40 98.4 F 80 18 139/79 100 Intake and Output 04/10/21 04/11/21 04/11/21 22:59 06:59 14:59 Intake Total 300 0 Balance 300 0 Intake: Oral 300 0 Other: Voiding Method Toilet # Voids 1 1 Weight 83.915 kg Results 04/10/21 17:20 04/10/21 17:20 Cardiac Enzymes 04/10/21 04/10/21 04/10/21 Range/Units 17:20 17:20 22:15 AST 31 (14-36) U/L Troponin I <0.012 <0.012 (0.000-0.034) ng/mL 04/11/21 Range/Units 00:42 AST (14-36) U/L Troponin I <0.012 (0.000-0.034) ng/mL Coagulation 04/10/21 Range/Units 17:20 PT 10.5 (9.0-12.0) sec APTT 23.7 (22.0-30.0) sec CBC 04/10/21 Range/Units 17:20 WBC 8.3 (3.8-10.6) k/uL RBC 4.81 (3.80-5.40) m/uL Hgb 15.6 (11.4-16.0) gm/dL Hct 44.5 (34.0-46.0) % Plt Count 343 (150-450) k/uL Comprehensive Metabolic Panel 04/10/21 Range/Units 17:20 Sodium 140 (137-145) mmol/L Potassium 4.6 (3.5-5.1) mmol/L Chloride 105 (98-107) mmol/L Carbon Dioxide 25 (22-30) mmol/L BUN 16 (7-17) mg/dL Creatinine 0.76 (0.52-1.04) mg/dL Glucose 98 (74-99) mg/dL Calcium 10.2 (8.4-10.2) mg/dL AST 31 (14-36) U/L ALT 19 (4-34) U/L Alkaline Phosphatase 75 (38-126) U/L Total Protein 8.1 (6.3-8.2) g/dL Albumin 4.7 (3.5-5.0) g/dL Current Medications Generic Name Dose Route Start Last Admin Trade Name Freq PRN Reason Stop Dose Admin Acetaminophen 650 mg 04/10/21 19:35 Acetaminophen Tab 325 Mg Tab PO Q6HR PRN Mild Pain or Fever > 100.5 Aspirin 325 mg 04/11/21 09:00 Aspirin 325 Mg Tab PO DAILY MANUEL Sodium Chloride 1,000 mls @ 75 mls/hr 04/10/21 19:45 04/10/21 20:04 Saline 0.9% IV 75 mls/hr .[id number] MANUEL Administration Naloxone HCl 0.2 mg 04/10/21 19:35 Naloxone 0.4 Mg/Ml 1 Ml Vial IV Q2M PRN Opioid Reversal Nitroglycerin 0.4 mg 04/10/21 20:03 Nitroglycerin Sl Tabs 0.4 Mg Tab SUBLINGUAL Q5M PRN Chest Pain Intake and Output 04/10/21 04/11/21 04/11/21 22:59 06:59 14:59 Intake Total 300 0 Balance 300 0 Intake: Oral 300 0 Other: Voiding Method Toilet # Voids 1 1 Weight 83.915 kg 04/10/21 17:20 04/10/21 17:20
--- NOTE | 2021-04-11 13:01 | ECHOF ---
Referral Reason:chest pain MEASUREMENTS -------- HEIGHT: 175.3 cm WEIGHT: 83.9 kg BP: 100/65 IVSd: 1.1 cm (0.6 - 1.1) LVIDd: 4.3 cm (3.9 - 5.3) LVPWd: 1.1 cm (0.6 - 1.1) EDV(Teich): 83 ml IVSs: 1.3 cm LVIDs: 3.4 cm LVPWs: 0.9 cm %IVS Thck: 18 % ESV(Teich): 49 ml EF(Teich): 41 % %FS: 20 % SV(Teich): 34 ml LA Diam: 3.7 cm (2.7 - 3.8) RVIDd: 2.4 cm (< 3.3) Ao Diam: 3.0 cm (2.0 - 3.7) LA Diam: 3.4 cm (2.7 - 3.8) AV Cusp: 1.9 cm (1.5 - 2.6) EPSS: 0.2 cm MV E [place]: 0.66 m/s MV DecT: 220 ms MV Dec [place]: 3.0 m/s MV A [place]: 0.72 m/s MV E/A Ratio: 0.92 MV PHT: 64 ms TR Vmax: 2.16 m/s TR maxP.73 mmHg RAP: 5.00 mmHg RVSP: 23.73 mmHg MV EF SLOPE: 116.13 mm/s (70 - 150) MV EXCURSION: 18.05 mm (> 18.000) FINDINGS -------- Sinus rhythm. This was a technically good study. LV size, wall thickness and systolic function are normal, with an EF greater than 55%. The left pauly tricular size is normal. The right ventricle is normal in size. The left atrial size is normal. The right atrial size is normal. The aortic valve is trileaflet, and appears structurally normal. No aortic stenosis or regurgitation. There is trace mitral regurgitation. Mild tricuspid regurgitation present. Right ventricular systolic pressure is normal at < 35 mmHg. There is no pulmonic regurgitation present. There is no pericardial effusion. CONCLUSIONS -------- 1. LV size, wall thickness and systolic function are normal, with an EF greater than 55%. 2. The left ventricular size is normal. 3. The right ventricle is normal in size. 4. The left atrial size is normal. 5. The right atrial size is normal. 6. The aortic valve is trileaflet, and appears structurally normal. No aortic stenosis or regurgitati on. 7. There is trace mitral regurgitation. 8. Mild tricuspid regurgitation present. 9. There is no pericardial effusion. CASE HARDENER: Holley Duarte RDCS
[2021-04-11 15:52] VITALS: BP 134/77; TEMP 97.9
[2021-04-12 02:10] LABS: Chol/HDL Ratio 4.35; LDL Cholesterol,Calculated 146.6 mg/dL (0.0-131.0); VLDL Calculation 24.4 mg/dL (5.00-40.00)
[2021-04-12] MEDS ORDERED: MULTIVITAMINS, THERA 1 EACH TAB PO SCH (09:00)
--- NOTE | 2021-05-10 08:56 | P.HPIM ---
History of Present Illness H&P Date: 04/11/21 Chief Complaint: Back/shoulder pain/injury 60-year-old white female, well appearing, presents to the emergency room for 8 days of back pain between her shoulder blades. Patient states that the pain came on when she was at rest. She has not seen anyone for this pain. She also is complaining of left flank pain that radiates around to her left groin and epigastric pain. She states that she had a colonoscopy and an endoscopy done 2 years ago for abdominal pain and was told that she has a small stricture in her esophagus, she also had a polyp removed from her stomach. She does have a history of abdominal surgery hernia repair with mesh. She states that she did have a heart attack 18 years ago. She denies any chest pain or shortness of breath. She denies any fevers or nausea vomiting. She has seen her doctor in the past and the cause of her left lower abdominal pain has not been determined. CBC and electrolytes are within normal limits. UA is negative for infection. Troponin is negative at 0.012 EKG shows sinus rhythm with a bifascicular block. There is no old EKG to compare. CT the abdomen and pelvis shows no acute process. Her appendix is normal. There is no abnormality of the gallbladder, liver or pancreas. Patient did have an acute IL 18 years ago. She states that she did have an echo and they found no cause. Patient was admitted to the hospital for further cardiology evaluation Review of Systems REVIEW OF SYSTEMS: CONSTITUTIONAL: No fever, no malaise, no fatigue. HEENT: No recent visual problems or hearing problems. Denied any sore throat. CARDIOVASCULAR: chest pain PULMONARY: No shortness of breath, no cough, no hemoptysis. GASTROINTESTINAL: No diarrhea, no nausea, no vomiting, no abdominal pain. NEUROLOGICAL: No headaches, no weakness, no numbness. HEMATOLOGICAL: Denies any bleeding or petechiae. GENITOURINARY: Denies any burning micturition, frequency, or urgency. MUSCULOSKELETAL/RHEUMATOLOGICAL: Denies any joint pain, swelling, or any muscle pain. ENDOCRINE: Denies any polyuria or polydipsia. The rest of the 14-point review of systems is negative. Past Medical History Past Medical History: Myocardial Infarction ([place]) Additional Past Medical History / Comment(s): Pt had IL 19 years ago. Last Myocardial Infarction Date:: 2002 History of Any Multi-Drug Resistant Organisms: None Reported Past Surgical History: Heart Catheterization, Hernia Repair, Tubal Ligation Past Anesthesia/Blood Transfusion Reactions: No Reported Reaction Past Psychological History: No Psychological Hx Reported Smoking Status: Never smoker Past Alcohol Use History: None Reported Past Drug Use History: None Reported - Past Family History Mother Family Medical History: Cancer Additional Family Medical History / Comment(s): of colon cancer Father Family Medical History: Cancer Additional Family Medical History / Comment(s): Renal cancer Medications and Allergies Home Medications Medication Instructions Recorded Confirmed Type Multivitamins, Thera [Multivitamin 1 tab PO DAILY 03/08/19 04/10/21 History (formulary)] Allergies Allergy/AdvReac Type Severity Reaction Status Date / Time erythromycin base Allergy Nausea & Verified 04/10/21 19:52 [Erythromycin Base] Vomiting & Diarrhea Penicillins Allergy Rash/Hives Verified 04/10/21 19:52 Physical Exam Vitals: Vital Signs Temp Pulse Pulse Resp BP BP Pulse Ox 04/11/21 08:00 71 16 04/11/21 07:00 98.2 F 71 16 146/77 96 04/11/21 02:00 76 16 04/11/21 01:30 97.6 F 76 16 100/65 95 04/10/21 21:54 98.1 F 68 16 136/71 98 04/10/21 19:00 80 18 127/77 99 04/10/21 18:30 128/75 98 04/10/21 18:00 85 122/73 04/10/21 17:30 124/81 97 04/10/21 17:27 77 18 124/81 98 04/10/21 17:25 94 L 04/10/21 15:40 98.4 F 80 18 139/79 100 Intake and Output 04/10/21 04/11/21 04/11/21 22:59 06:59 14:59 Intake Total 300 0 Balance 300 0 Intake: Oral 300 0 Other: Voiding Method Toilet Toilet # Voids 1 1 Weight 83.915 kg - Constitutional General appearance: Present: average body habitus, cooperative, no acute distress - EENT Eyes: Present: anicteric sclerae, EOMI, PERRLA, normal appearance ENT: Present: hearing grossly normal, normal oropharynx Ears: bilateral: normal - Neck Neck: Present: normal ROM. Absent: lymphadenopathy, rigidity, thyromegaly Carotids: negative: bruit present Thyroid: bilateral: normal size, negative: enlarged, nodule - Respiratory Respiratory: bilateral: CTA, negative: rales, rhonchi, wheezing - Cardiovascular Rhythm: regular Heart sounds: normal: S1, S2 Abnormal Heart Sounds: Absent: systolic murmur, diastolic murmur - Gastrointestinal General gastrointestinal: Present: normal bowel sounds, soft. Absent: distended, organomegaly, tenderness - Genitourinary Genitourinary Comment(s): deferred - Integumentary Integumentary: Present: normal turgor. Absent: jaundiced, rash, ulcer - Neurologic Neurologic: Present: CNII-XII intact. Absent: focal deficits - Musculoskeletal Musculoskeletal: Present: gait normal, strength equal bilaterally - Psychiatric Psychiatric: Present: A&O x's 3, appropriate affect, intact judgment & insight Results CBC & Chem 7: 04/10/21 17:20 04/10/21 17:20 Labs: Abnormal Lab Results - Last 24 Hours (Table) 04/10/21 Range/Units 17:20 Urine Blood Trace H (Negative) Urine Mucus Moderate H (None) /hpf Thrombosis Risk Factor Assmnt - Choose All That Apply Any of the Below Risk Factors Present?: Yes Each Factor Represents 1 point: Age 41-60 years, Obesity (BMI >25) Thrombosis Risk Factor Assessment Total Risk Factor Score: 2 Thrombosis Risk Factor Assessment Level: Low Risk Assessment and Plan Assessment: 1. Chest pain; history of IL in the past; we will monitor EKG and trend troponin; 2-D echo; consult cardiology for further recommendations 2. Abdominal pain; etiology unclear; patient is recommended GI/general surgery consult 3. Uncontrolled hypertension; patient doesn't have any diagnosis of hypertension in the past; we will monitor blood pressure closely and make further recommendations and initiate therapy prior to discharge as needed DVT prophylaxis; SCDs CODE STATUS; full code
--- NOTE | 2021-05-10 08:57 | P.DS ---
Providers Date of admission: 04/10/21 19:45 Expected date of discharge: 04/11/21 Attending physician: Wilfrido Howell MD Consults: 04/10/21 19:36 Consult Physician Urgent Consulting Provider: Arsalan Garcia Consult Reason/Comments: acs Do you want consulting provider notified?: Yes 04/11/21 13:37 Consult Physician Routine Consulting Provider: Ashwin Faye Consult Reason/Comments: Abdominal pain/ hernia repair/mesh Do you want consulting provider notified?: Yes Primary care physician: Stated None Hospital Course: 60-year-old white female, well appearing, presents to the emergency room for 8 days of back pain between her shoulder blades. Patient states that the pain came on when she was at rest. She has not seen anyone for this pain. She also is complaining of left flank pain that radiates around to her left groin and epigastric pain. She states that she had a colonoscopy and an endoscopy done 2 years ago for abdominal pain and was told that she has a small stricture in her esophagus, she also had a polyp removed from her stomach. She does have a history of abdominal surgery hernia repair with mesh. She states that she did have a heart attack 18 years ago. She denies any chest pain or shortness of breath. She denies any fevers or nausea vomiting. She has seen her doctor in the past and the cause of her left lower abdominal pain has not been determined. CBC and electrolytes are within normal limits. UA is negative for infection. Troponin is negative at 0.012 EKG shows sinus rhythm with a bifascicular block. There is no old EKG to compare. CT the abdomen and pelvis shows no acute process. Her appendix is normal. There is no abnormality of the gallbladder, liver or pancreas. Patient did have an acute MD 18 years ago. She states that she did have an echo and they found no cause. Patient was admitted to the hospital for further cardiology evaluation Patient is also recommended general surgery/GI consult for abdominal pain which patient declined because of resolution of pain Patient was evaluated by cardiology and was recommended echocardiogram which revealed EF greater than 55% and normal ventricular size and function; cardi ology did not recommend any further testing and patient was discharged home in a stable condition Patient Condition at Discharge: Good Plan - Discharge Summary Discharge Rx Participant: No New Discharge Prescriptions: Continue Multivitamins, Thera [Multivitamin (formulary)] 1 tab PO DAILY Discharge Medication List Multivitamins, Thera [Multivitamin (formulary)] 1 tab PO DAILY 03/08/19 [History] Follow up Appointment(s)/Referral(s): John Bales MD [STAFF PHYSICIAN] - 1-2 days Discharge Disposition: HOME SELF-CARE
== END 2021-04-11 19:16 | disposition home or self-care (01) ==
LOC: EC 14:02 → 6NMEDSUR 19:45
PROVIDERS: ADMIT Internal Medicine; ATTEND Internal Medicine
DX: R10.11 Right upper quadrant pain (principal); R11.0 Nausea; R07.89 Other chest pain; M54.9 Dorsalgia, unspecified; R10.13 Epigastric pain; R10.32 Left lower quadrant pain; M25.519 Pain in unspecified shoulder; R13.10 Dysphagia, unspecified; R03.0 Elevated blood-pressure reading, without diagnosis of hypertension; I45.2 Bifascicular block; I25.2 Old myocardial infarction; Z86.010 Personal history of colon polyps; Z98.890 Other specified postprocedural states; Z88.0 Allergy status to penicillin; Z88.1 Allergy status to other antibiotic agents; Z80.0 Family history of malignant neoplasm of digestive organs; Z80.51 Family history of malignant neoplasm of kidney; E66.9 Obesity, unspecified; Z68.27 Body mass index [BMI] 27.0-27.9, adult
CPT/HCPCS: 96361; 96374; 99285; 36415; 93005; 93306; 80061; 80053; 82150; 83605; 83690; 84484 ×2; 85025; 85610; 85730; 81001; 74176; G0378 ×2; J2270

== ENCOUNTER → 2021-04-16 | Outpatient (CLI) | payer OTHER ==
--- NOTE | 2021-04-16 18:57 | SFUN ---
SLEEP CENTER FOLLOW UP NOTE DATE OF SERVICE: 04/16/2021 This 60-year-old lady has been followed in Sleep Center for treatment of obstructive sleep apnea-hypopnea syndrome. Recently the patient had a polysomnogram which showed extremely severe obstructive sleep apnea-hypopnea syndrome with apnea-hypopnea index 60.3 and oxygen desaturation to 73.2%. Subsequently the patient was started on treatment with CPAP and today is her first visit on therapy. According to the patient, she is able to use her PAP equipment every night, and she sleeps better with CPAP therapy and she feels better during the day. [place] Sleepiness Scale today is only 2, which is perfect. I checked her CPAP unit. Range of the pressure is 5-18, average pressure 9.8 cm of water, usage 29/30 nights for more than 4 hours with average usage 6.9 hours per night. Leak is 23 L/minute, which is borderline for full-face mask. Apnea-hypopnea index is only 2.7, which is perfect. MEDICATIONS: None. PHYSICAL EXAMINATION: GENERAL: Pleasant patient in no distress. VITAL SIGNS: BP 143/90, HR 94, RR 15, weight 195, temperature 98.1, oxygen saturation at room air 98.5. HEENT: PERRLA, EOMI, evaluation of oropharynx showed tongue protrudes midline. Moderately low position of soft palate; Mallampati II to III. NECK: Supple, no JVD. Thyroid is not palpable. Neck measures 15 inches in circumference. LUNGS: Clear to percussion and to auscultation. Good air exchange. No wheezing or rhonchi. HEART: S1, S2 regular. No murmurs, gallops, or rubs. ABDOMEN: Slightly obese. EXTREMITIES: No clubbing or cyanosis. RADIOISOTOPE TECHNICIAN: Awake, alert, and oriented X3. Cranial nerves 2 to 7 intact. There is no fasciculation or atrophy. noted. No focal deficits observed. IMPRESSION: 1. Severe obstructive sleep apnea-hypopnea syndrome; apnea-hypopnea index 60.3 with oxygen desaturation to 73.2%, under good control with CPAP treatment. The patient demonstrated 100% compliance with treatment, benefitting from treatment. 2. Overweight; borderline to obesity. 3. History of questionable heart attack by results of increased cardiac enzymes. 4. History of fibromyalgia. 5. Nasal septum deviation. 6. Status post hernia repair in 2011. 7. Status post tubal ligation. PLAN: 1. To replace air filter. 2. I discussed with the patient position of the machine and the necessity to make humidifier chamber dry after usage. 3. Patient will continue to use PAP equipment every night for the whole night. 4. Sleep hygiene with regular time in bed for at least 7-1/2 to 8 hours. 5. Precautions related to driving. No driving if feeling sleepiness. 6. I will maintain all necessary prescription for PAP supplies including mask, tube, filters. 7. Watching weight. 8. Patient will continue to use Vitera full-face mask. 9. Follow-up visit in 6 months or earlier if patient has any problems. Thank you very much for allowing me to participate in the management of your patient. Sincerely, Taiwo Cross MD, PhD, FAASM Diplomat of [place] [employer] Sleep Medicine [employer] [place] [employer] Manager of [facility] [place] MMODL / RACHAELN: [id number] / DARRELL
== END ==
LOC: SLEEP 10:31
PROVIDERS: ATTEND Internal Medicine
DX: G47.33 Obstructive sleep apnea (adult) (pediatric) (principal); G47.36 Sleep related hypoventilation in conditions classified elsewhere; E66.9 Obesity, unspecified; J34.2 Deviated nasal septum; Z98.890 Other specified postprocedural states; Z98.51 Tubal ligation status; Z87.39 Personal history of other diseases of the musculoskeletal system and connective tissue; Z99.89 Dependence on other enabling machines and devices; Z88.0 Allergy status to penicillin; Z88.1 Allergy status to other antibiotic agents

== ENCOUNTER → 2021-10-22 | Outpatient (CLI) | payer OTHER ==
--- NOTE | 2021-10-22 11:26 | SFUN ---
SLEEP CENTER FOLLOW UP NOTE DATE OF SERVICE: 10/22/2021 This 61-year-old lady has been followed in Sleep Center for treatment of obstructive sleep apnea-hypopnea syndrome. The patient continues to use her CPAP equipment every night, had one episode when water came into her mask. She is using a Vitera full-face mask, medium size. Dixon Sleepiness Scale today is 1, which is absolutely normal. I checked her CPAP unit. Range of the pressure is 5 to 18, automatic, average 10.4 cm of water. Usage is 30/30 nights for more than 4 hours, average 6.8 hours per night. Leak is 28 L/minute, which is borderline. Apnea-hypopnea index is 2.5, which is normal. MEDICATIONS: Vitamins. PHYSICAL EXAMINATION: GENERAL: Pleasant patient in no distress. VITAL SIGNS: BP 131/81, HR 86, RR 15, weight 199.6 pounds, temperature 97.3, oxygen saturation at room air 98%. HEENT: PERRLA, EOMI, evaluation of oropharynx showed tongue protrudes midline. Moderately low position of soft palate; Mallampati II to III. NECK: Supple, no JVD. Thyroid is not palpable. LUNGS: Clear to percussion and to auscultation. Good air exchange. No wheezing or rhonchi. HEART: S1, S2 regular. No murmurs, gallops, or rubs. ABDOMEN: Slightly obese. EXTREMITIES: No clubbing or cyanosis. YARN SPOOLER: Awake, alert, and oriented X3. Cranial nerves 2 to 7 intact. There is no fasciculation or atrophy. noted. No focal deficits observed. IMPRESSION: 1. Severe obstructive sleep apnea-hypopnea syndrome. Original apnea-hypopnea index 60.3 with oxygen desaturation 73.2%. The patient demonstrated 100% compliance with treatment, normal respiration on CPAP, benefitting from treatment. 2. Mild obesity. 3. History of questionable heart attack many years ago. One set of cardiac enzymes was increased. 4. History of fibromyalgia. 5. Nasal septum deviation. 6. Status post hernia repair in 2011. 7. Status post tubal ligation. PLAN: 1. Patient will continue to use PAP equipment every night for the whole night. 2. Sleep hygiene with regular time in bed for at least 7-1/2 to 8 hours. 3. Precautions related to driving. No driving if feeling sleepiness. 4. I will maintain all necessary prescription for PAP supplies including mask, tube, filters. 5. Watching weight. 6. Follow-up visit in one year or earlier if patient has any problems. Thank you very much for allowing me to participate in the management of your patient. Sincerely, Taiwo Cross MD, PhD, FAASM Diplomat of [employer] Sleep Medicine Board of [employer] Labor Economics Teacher of [facility] Kopperl MMLORENA / RACHAELN: [id number] /
== END ==
LOC: SLEEP 09:53
PROVIDERS: ATTEND Internal Medicine
DX: G47.33 Obstructive sleep apnea (adult) (pediatric) (principal); G47.36 Sleep related hypoventilation in conditions classified elsewhere; Z99.89 Dependence on other enabling machines and devices; E66.9 Obesity, unspecified; Z87.39 Personal history of other diseases of the musculoskeletal system and connective tissue; J34.2 Deviated nasal septum; Z98.890 Other specified postprocedural states; Z98.51 Tubal ligation status; Z88.1 Allergy status to other antibiotic agents; Z88.0 Allergy status to penicillin

== ENCOUNTER 2022-08-26 06:54 | Emergency (ER) | payer OTHER ==
[2022-08-26 07:27] VITALS: RESP 16
--- NOTE | 2022-08-26 07:37 | ED ---
Head Injury HPI - General Chief complaint: Head Injury Stated complaint: Head Injury Time Seen by Provider: 08/26/22 07:02 Source: patient, RN notes reviewed Mode of arrival: ambulatory Limitations: no limitations - History of Present Illness Initial comments: 62-year-old female presents emergency Department with chief complaint of head injury. Patient states a few weeks ago she was struck in the frontal aspect of her head by her dog states that she had significant for head swelling and bruising that went into her periorbital region. Patient states that yesterday she was standing up struck her head on a cabinet. Patient states she's been having increasing headache, just feels off did not feel well. Patient denies syncopal episode. Patient denies any blood thinners. Patient states that she that she has some tingling in her fingers on her right arm does not have currently no focal weakness denies any associated complaints. - Related Data Home Medications Medication Instructions Recorded Confirmed Multivitamins, Thera [Multivitamin 1 tab PO DAILY 03/08/19 04/10/21 (formulary)] Allergies/Adverse reactions: Allergies Allergy/AdvReac Type Severity Reaction Status Date / Time erythromycin base Allergy Nausea & Verified 08/26/22 06:55 [Erythromycin Base] Vomiting & Diarrhea Penicillins Allergy Rash/Hives Verified 08/26/22 06:55 Review of Systems ROS Statement: Those systems with pertinent positive or pertinent negative responses have been documented in the HPI. ROS Other: All systems not noted in ROS Statement are negative. Past Medical History Past Medical History: Myocardial Infarction ([place]) Additional Past Medical History / Comment(s): Pt had [place] 19 years ago. Last Myocardial Infarction Date:: 2002 History of Any Multi-Drug Resistant Organisms: None Reported Past Surgical History: Heart Catheterization, Hernia Repair, Tubal Ligation Past Anesthesia/Blood Transfusion Reactions: No Reported Reaction Past Psychological History: No Psychological Hx Reported Smoking Status: Never smoker Past Alcohol Use History: None Reported Past Drug Use History: None Reported - Past Family History Mother Family Medical History: Cancer Additional Family Medical History / Comment(s): of colon cancer Father Family Medical History: Cancer Additional Family Medical History / Comment(s): Renal cancer General Exam Limitations: no limitations General appearance: alert, in no apparent distress Head exam: Present: atraumatic, normocephalic, normal inspection Eye exam: Present: normal appearance, PERRL, EOMI. Absent: scleral icterus, conjunctival injection, periorbital swelling ENT exam: Present: normal exam, mucous membranes moist Neck exam: Present: normal inspection, full ROM. Absent: tenderness, meningismus, lymphadenopathy Respiratory exam: Present: normal lung sounds bilaterally. Absent: respiratory distress, wheezes, rales, rhonchi, stridor Cardiovascular Exam: Present: regular rate, normal rhythm, normal heart sounds. Absent: systolic murmur, diastolic murmur, rubs, gallop, clicks Neurological exam: Present: alert, oriented X3, CN II-XII intact, reflexes normal. Absent: motor sensory deficit Skin exam: Present: warm, dry, intact, normal color. Absent: rash Course Vital Signs 08/26/22 08/26/22 06:55 07:26 Temperature 98.6 F 98 F Pulse Rate 88 81 Respiratory 15 16 Rate Blood Pressure 126/74 150/82 O2 Sat by Pulse 98 97 Oximetry Medical Decision Making - Medical Decision Making Was pt. sent in by a medical professional or institution (Dr. PA, HEALTH AND SAFETY TRAINER, urgent care, hospital, or senior care...) When possible be specific @ -No Did you speak to anyone other than the patient for history (EMS, parent, family, police, friend...)? What history was obtained from this source @ -No Did you review nursing and triage notes (agree or disagree)? Why? @ -I reviewed and agree with nursing and triage notes Were old charts reviewed (outside hosp., previous admission, EMS record, old EKG, old radiological studies, urgent care reports/EKG's, senior care records)? Report findings @ -No old charts were reviewed Differential Diagnosis (chest pain, altered mental status, abdominal pain women, abdominal pain men, vaginal bleeding, weakness, fever, dyspnea, syncope, headache, dizziness, GI bleed, back pain, seizure, CVA, palpatations, mental health)? @ -Scalp contusion, closed head injury, intracranial hemorrhage, cervical disc herniation, skull fracture, this list is not all inclusive. EKG interpreted by me (3pts min.). @ -None X-rays interpreted by me (1pt min.). @ -None done CT interpreted by me (1pt min.). @ -Ct cspine the brain, C-spine was performed shows cervical degenerative changes, no intracranial hemorrhage U/S interpreted by me (1pt. min.). @ -None done What testing was considered but not performed or refused? (CT, X-rays, U/S, labs)? Why? @ -None What meds were considered but not given or refused? Why? @ -None Did you discuss the management of the patient with other professionals (professionals i.e. Dr., PA, HEALTH AND SAFETY TRAINER, lab, RT, psych nurse, social worker clinical, hand winder, teacher, sheriff officer, nurse outreach case manager)? Give summary @ -No Was smoking cessation discussed for >3mins.? @ -No Was critical care preformed (if so, how long)? @ -No Were there social determinants of health that impacted care today? How? (Homeles sness, low income, unemployed, alcoholism, drug addiction, transportation, low edu. Level, literacy, decrease access to med. care, longterm, rehab)? @ -No Was there de-escalation of care discussed even if they declined (Discuss DNR or withdrawal of care, Hospice)? DNR status @ -No What co-morbidities impacted this encounter? (DM, HTN, Smoking, COPD, CAD, Cancer, CVA, ARF, Chemo, Hep., AIDS, mental health diagnosis, sleep apnea, morbid obesity)? @ -None Was patient admitted / discharged? Hospital course, mention meds given and route, prescriptions, significant lab abnormalities, going to OR and other pertinent info. @ -Discharged - patient CT did not reveal any acute changes patient has degenerative changes of the cervical spine may be contributory airman radicular symptoms. Patient has scalp contusion, closed head injury patient was discharged in stable condition return parameters discussed. Undiagnosed new problem with uncertain prognosis? @ -No Drug Therapy requiring intensive monitoring for toxicity (Heparin, Nitro, Insulin, Cardizem)? @ -No Were any procedures done? @ -No Diagnosis/symptom? @ -Closed head injury Acute, or Chronic, or Acute on Chronic? @ -Acute Uncomplicated (without systemic symptoms) or Complicated (systemic symptoms)? @ -Uncomplicated Side effects of treatment? @ -No Exacerbation, Progression, or Severe Exacerbation? @ -No Poses a threat to life or bodily function? How? (Chest pain, [place], [place], pneumonia, PE, COPD, DKA, ARF, appy, cholecystitis, CVA, Diverticulitis, Homicidal, Suicidal, threat to staff... and all critical care pts) @ -No Disposition Clinical Impression: Closed head injury, Contusion of scalp, Cervical radiculopathy due to degenerative joint disease of spine Disposition: HOME SELF-CARE Condition: Stable Instructions (If sedation given, give patient instructions): Head Injury (ED) Additional Instructions: Please return to the Emergency Department if symptoms worsen or any other concerns. Is patient prescribed a controlled substance at d/c from ED?: No Referrals: Braxton Murrieta MD [Primary Care Provider] - 1-2 days Time of Disposition: 08:26
--- NOTE | 2022-08-26 08:20 | CT ---
EXAMINATION TYPE: CT brain nimo cheek con DATE OF EXAM: 08/26/2022 COMPARISON: None HISTORY: 62-year-old female Head injury and sore neck CT DLP: 1474.6 mGycm Automated exposure control for dose reduction was used. Technique: Examination of the head was done in axial plane without intravenous contrast. Coronal and sagittal reconstructions performed. CT of the cervical spine was obtained in axial plane without intravenous injection of contrast mater ial. Coronal and sagittal reformatted images were obtained from the axial views for evaluation of f ractures, spinal alignment and canal. FINDINGS: Head: There is no evidence of acute intracranial hemorrhage, acute ischemic changes, mass, mass-effect, or extra-axial fluid collection. There is no effacement of cerebral sulci or basal subarachnoid cister ns. There is no hydrocephalus. There is no midline shift. Rodriguez-white matter distinction is preserv ed. There are some partial volume averaging artifact at the lateral floor of the left anterior cranial fo ssa. Paranasal sinuses and mastoid air cells are pneumatized. Scattered mild mucosal thickening left sphen oid sinus and posterior right ethmoid air cells. Orbits and globes are intact. Cervical spine: No craniocervical junction abnormality, predental space widening, or prevertebral soft tissue swellin g. Degenerative change at the C1 dens articulation. Mild to moderate degenerative disc disease mid to lower cervical spine. Degenerative trace grade 1 anterolisthesis C7-T1 and T1-T2 and trace grade 1 retrolisthesis C6-C7. Disc ossified complex likely contribute to mild narrowing of the spinal canal at C5-C6. Assessment of the spinal canal below this level is limited due to artifact from patient's shoulders. Multilevel facet and uncovertebral joint arthropathy is present. This contributes to very minimal mild neuroforaminal stenoses, greatest at C5-C6 and C6-C7. No acute fracture of the cervical spine. Sagittal and coronal reformatted images confirm above findings. COMBINED IMPRESSION: 1. No acute intracranial abnormality seen. 2. No acute fracture of the cervical spine. Mild to moderate multilevel spondylotic change. Degenerat kan grade 1 spondylolisthesis C6-C7, C7-T1, and T1-T2.
[2022-08-26 08:48] VITALS: BP 144/85; PULSE 80; TEMP 97.6
== END 2022-08-26 08:49 | disposition home or self-care (01) ==
LOC: EC 06:54
DX: S00.03XA Contusion of scalp, initial encounter (principal); M50.10 Cervical disc disorder with radiculopathy, unspecified cervical region; I25.2 Old myocardial infarction; Z88.1 Allergy status to other antibiotic agents; Z88.0 Allergy status to penicillin; W54.0XXA Bitten by dog, initial encounter
CPT/HCPCS: 70450; 72125; 99283

== ENCOUNTER → 2022-10-21 | Outpatient (CLI) | payer OTHER ==
--- NOTE | 2022-10-21 11:12 | P.PN ---
Subjective DATE: 10/21/2022 FOLLOW UP VISIT. Patient with obstructive sleep apnea hypopnea syndrome return to sleep center for follow-up visit. Information from previous visit have been reviewed. Patient is using PAP equipment every night for the whole night, getting PAP supplies in time. Sometimes patient feels that the pressure is too high. Slaughters sleepiness scale is 1, which is perfect. I checked information from PAP unit. PAP unit pressure 5-18, average 9.4 cm H2O. Usage is 100 % for more then 4 hours, average 7 hours per night. Leak is 27.7 l/m, which is in acceptable range. Apnea Hypopnea Index is 2.2, which is normal. MEDICATIONS: None During physical exam: GENERAL: A pleasant patient without any distress. VITAL SIGNS: BP 134/84, HR 80, RR 16, weight 200.6, temperature 98.4, oxygen saturation at room air 97 % . HEENT: PERRLA, EOMI.low position of soft palate, Mallapati 2-3. NECK: Supple. No JVD. LUNGS: Clear to percussion and to auscultation. Good air exchange. No wheezing or rhonchi. HEART: S1, S2 regular. ABDOMEN: Soft and nontender.[] EXTREMITIES: No clubbing or cyanosis. CERTIFIED LEGAL SECRETARY SPECIALIST: Awake, alert, and oriented x3. No focal deficit. Impressions: 1. Obstructive sleep apnea-hypopnea syndrome. Patient demonstrated great compliance with treatment, benefiting from treatment. 2. History of questionable heart attack many years ago, at that time one set of cardiac enzymes was increased. 3. History of fibromyalgia. 4. Nasal septum deviation. 5. Status post hernia repair. 6. mild obesity. Plan: 1. Continue using PAP equipment every night for the whole night. I adjusted pressure in CPAP unit to the range 5-12 cm of water . 2. To change air filter at least 1-2 times per month. 3. PAP unit should stay lower then position of the head. 4. Advised patient to remove all remaining water from humidifier canister daily and make it dry after each usage. Refill canister with fresh distilled water before each usage. 5. Sleep hygiene with regular time in bed for at least 8 hours. 6. Precautions related to driving. No driving if feel any sleepiness. 7. I will maintain prescription for PAP supplies including mask, tube, filters. 8. Follow up visit in 6 months or earlier if patient has any problems. 9. Watching weight. Thank you very much for allowing me to participate in the management of your patient. Taiwo Cross MD, PhD, FAASM. Diplomat of [place] [employer], Sleep Medicine Board by [place] [employer] Bee Worker of [facility] [place]
== END ==
LOC: SLEEP 10:43
PROVIDERS: ATTEND Internal Medicine
DX: G47.33 Obstructive sleep apnea (adult) (pediatric) (principal); M79.7 Fibromyalgia; J34.2 Deviated nasal septum; E66.9 Obesity, unspecified; Z99.89 Dependence on other enabling machines and devices; Z88.0 Allergy status to penicillin; Z88.1 Allergy status to other antibiotic agents
CPT/HCPCS: 99212

== ENCOUNTER → 2025-02-14 | Outpatient (CLI) | payer OTHER ==
[2025-02-14 10:54] VITALS: BP 147/87; PULSE 75; RESP 14; TEMP 98.1
--- NOTE | 2025-02-14 11:35 | P.PROGSL ---
Subjective DATE: 02/14/2025 FOLLOW UP VISIT. Patient with obstructive sleep apnea hypopnea syndrome return to sleep center for follow-up visit. Information from previous visit have been reviewed. Patient is using PAP equipment every night for the whole night, getting PAP supplies in time. During the last months patient developed problems with your CPAP unit. Periodically CPAP unit stopped working. [place] sleepiness scale is 0. I checked information from PAP unit. Cover for filter is broken. PAP unit pressure 5-12, average 10 cm H2O. Usage is 171 out of 180 nights for last 6 months for more then 4 hours, average 7.3 hours per night. Leak is 30 l/m, which is in acceptable range. Apnea Hypopnea Index is increased to 10.4. MEDICATIONS have been reviewed, please see below. During physical exam: GENERAL: A pleasant patient without any distress. VITAL SIGNS: Please see below, weight is 210 lbs. HEENT: PERRLA, EOMI.low position of soft palate, Mallapati 23. NECK: Supple. No JVD. LUNGS: Clear to percussion and to auscultation. Good air exchange. No wheezing or rhonchi. HEART: S1, S2 regular. ABDOMEN: Soft and nontender.[] EXTREMITIES: No clubbing or cyanosis. BEE ROBBER: Awake, alert, and oriented x3. No focal deficit. Impressions: 1. Obstructive sleep apnea-hypopnea syndrome. Patient demonstrated great compliance with treatment, benefiting from treatment. Patient developed problems with the CPAP unit. CPAP unit has episodes of stopped working. AHI index increased comparing with previous visit, when it was normal. 2. History of fibromyalgia. 3. History of possible heart attack many years ago with the increased cardiac enzymes on 1 set. 4. Nasal septum deviation. 5. Mild obesity, BMI 32.8, patient increased weight on 12 pounds comparing with previous visit. 6. Status post hernia repair. Adjusted to AutoPap pressure slightly up to the level 5 to 13 cm of water. Plan: 1. Continue using PAP equipment every night for the whole night. Prescription to fix or replace AutoPap unit to [facility]. 2. Sleep hygiene with regular time in bed for at least 7.5-8 hours 3. PAP unit should stay lower then position of the head. 4. Advised patient to remove all remaining water from humidifier canister daily and make it dry after each usage. Refill canister with fresh distilled water before each usage. 5. Watching weight. 6. Precautions related to driving. No driving if feel any sleepiness. 7. I will maintain prescription for PAP supplies including mask, tube, filters. 8. Follow up visit in 30 to 90 days after patient will receive new AutoPap unit. Thank you very much for allowing me to participate in the management of your patient. Taiwo Cross MD, PhD, FAASM. Diplomat of [place] [employer], Sleep Medicine Board by [place] [employer] Se[employer] [facility] [employer] Objective - Vital Signs Vital Signs: Vital Signs Temp 98.1 F 02/14/25 10:53 Pulse 75 02/14/25 10:53 Resp 14 02/14/25 10:53 BP 147/87 02/14/25 10:53 Pulse Ox 97 02/14/25 10:53 FiO2 Intake & Output 02/13/25 02/14/25 02/14/25 18:59 06:59 18:59 Weight 95.254 kg Home Medications: Home Medications Medication Instructions Recorded Confirmed Type Multivitamins, Thera [Multivitamin 1 tab PO DAILY 03/08/19 04/10/21 History (formulary)]
== END ==
LOC: 3 N SLEEP 10:26
PROVIDERS: ATTEND Internal Medicine
DX: G47.33 Obstructive sleep apnea (adult) (pediatric) (principal); Z99.89 Dependence on other enabling machines and devices; J34.2 Deviated nasal septum; E66.9 Obesity, unspecified; Z68.32 Body mass index [BMI] 32.0-32.9, adult; Z86.69 Personal history of other diseases of the nervous system and sense organs; Z98.890 Other specified postprocedural states; Z88.0 Allergy status to penicillin; Z88.1 Allergy status to other antibiotic agents
CPT/HCPCS: 99212